=== PATIENT | female | born 1995 | race Caucasian/White ===

== ENCOUNTER 2018-05-04 10:03 | Outpatient (CLI) | payer BC ==
[~2018-05-04] VITALS: Ht 165.1 cm; Wt 79.1 kg
[2018-05-04 10:17] VITALS: BP 131/92; PULSE 85; TEMP 98.3
[2018-05-04] MEDS ORDERED: PRENATAL1 TA7 PO (10:22)
[2018-05-04] MEDS ORDERED: PROAIR HFA0.09 MG/AC IH (10:23)
[2018-05-04 10:30] VITALS: BP 131/92; PULSE 97
[2018-05-04 11:00] VITALS: BP 120/84; PULSE 74
[2018-05-04 11:36] VITALS: BP 130/96; PULSE 74
== END 2018-05-04 11:50 | disposition home or self-care (01) ==
LOC: LDRO 10:03
DX: O62.9 Abnormality of forces of labor, unspecified (principal); Z3A.40 40 weeks gestation of pregnancy

== ENCOUNTER 2018-05-10 11:01 | Inpatient (IN) | payer BC ==
[~2018-05-10] VITALS: Ht 165.1 cm; Wt 79.1 kg
[2018-05-10] VITALS (28 sets, daily range): BP systolic 108–161; BP diastolic 54–97; PULSE 73–117; TEMP 98–98.9
[~2018-05-10 11:01] MED LIST: PRENATAL1 TA7 PO; PROAIR HFA0.09 MG/AC IH
[2018-05-10 13:54] LABS: BASO % 0.3 % (0.0-2.0); EOS # 0.1 (0.0-0.7); EOS % 0.5 % (0-4.0); GRAN # 8.8 (1.4-6.5); GRAN % 79.5 % (42.2-75.2); HEMATOCRIT 39.9 % (37.0-47.0); HEMOGLOBIN 13.7 g/dl (12.5-16.0); LYMPH # 1.6 (1.2-3.4); MEAN CELL VOLUME 89 fl (80.0-100.0); MEAN CORPUSCULAR HEMOGLOBIN 30 pg (27.0-31.0); MEAN CORPUSCULAR HGB CONC 34 g/dl (33.0-37.0); MEAN PLATELET VOLUME 9.8 fl (7.4-10.4); MONO # 0.6 (0.1-0.6); MONO % 5.2 % (1.7-9.3); PLATELET COUNT 335 K/mm3 (130-400); REDCELL DISTRIBUTION WIDTH-CV 12.5 % (11.5-14.5)
[2018-05-11 09:00] VITALS: BP 124/71; PULSE 80; TEMP 98.2
[2018-05-11 19:25] VITALS: BP 119/93; PULSE 87; TEMP 98.3
[2018-05-12 08:26] VITALS: BP 118/85; PULSE 80; TEMP 98.1
[2018-05-12] MEDS ORDERED: IBU800 M1 PO (10:30)
[2018-05-12] MEDS ORDERED: PERCOCET 325 MG1 TA2 PO (10:30)
[2018-05-12 16:14] VITALS: BP 134/88; PULSE 90; TEMP 98.9
[2018-05-12 22:22] VITALS: BP 120/77; PULSE 84; TEMP 98.9
[2018-05-13 07:59] VITALS: BP 116/68; PULSE 105; TEMP 98.1
== END 2018-05-13 14:40 | disposition home or self-care (01) | DRG 766 ==
LOC: LDRO 11:01 → LDR 13:15 → OB 17:10
PROVIDERS: Student in an Organized Health Care Education/Training Program
PROC: 10D00Z1 Extraction of Products of Conception, Low, Open Approach (ICD-10-PCS; principal; 2018-05-10)
DX: O76 Abnormality in fetal heart rate and rhythm complicating labor and delivery (principal); O48.0 Post-term pregnancy; Z3A.41 41 weeks gestation of pregnancy; Z37.0 Single live birth; O99.344 Other mental disorders complicating childbirth; J45.909 Unspecified asthma, uncomplicated; F41.8 Other specified anxiety disorders; F90.9 Attention-deficit hyperactivity disorder, unspecified type
CPT/HCPCS: J0690; J1885; J2370; J2405; J2590; J2795; J3010; J7120

== ENCOUNTER → 2018-05-15 | Outpatient (CLI) | payer BC ==
[~2018-05-15] MED LIST changes: +IBU800 M1 PO; +PERCOCET 325 MG1 TA2 PO
== END ==
LOC: LAC 10:19
DX: Z39.1 Encounter for care and examination of lactating mother (principal); Z71.89 Other specified counseling

== ENCOUNTER 2020-01-12 15:52 | Emergency (ER) | payer BC ==
[~2020-01-12] VITALS: Ht 165.1 cm; Wt 68.2 kg
[2020-01-12 16:09] VITALS: TEMP 98.2
[2020-01-12 16:31] LABS: COLLECTION METHOD CLEAN CATCH
[2020-01-12 16:42] LABS: PH 7 (5-8); SQUAMOUS EPITHELIAL None Seen /hpf; URINE APPEARANCE Clear; URINE BACTERIA None Seen /hpf; URINE BILIRUBIN Negative (NEGATIVE); URINE BLOOD 1+ (NEGATIVE); URINE COLOR Colorless; URINE GLUCOSE Negative (NEGATIVE); URINE KETONE Negative (NEGATIVE); URINE LEUKOCYTE ESTERASE Negative (NEGATIVE); URINE NITRATE Negative (NEGATIVE); URINE PROTEIN(semi-quant) Negative (NEGATIVE); URINE RBC 0-2 /hpf; URINE UROBILINOGEN Negative (NEGATIVE)
[2020-01-12 16:52] LABS: TRICYCLIC ANTIDEPRESS URINE NEGATIVE
[2020-01-12 16:57] LABS: BASO # 0.1 (0.0-0.2); BASO % 0.8 % (0.0-2.0); EOS # 0.1 (0.0-0.7); EOS % 1.8 % (0-4.0); GRAN # 4.4 (1.4-6.5); GRAN % 59.2 % (42.2-75.2); HEMOGLOBIN 14.8 g/dl (12.5-16.0); LYMPH # 2.3 (1.2-3.4); LYMPH % 30.6 % (20.0-51.0); MEAN CELL VOLUME 99 fl (80.0-100.0); MEAN CORPUSCULAR HEMOGLOBIN 33 pg (27.0-31.0); MEAN CORPUSCULAR HGB CONC 34 g/dl (33.0-37.0); MEAN PLATELET VOLUME 8.5 fl (7.4-10.4); MONO # 0.5 (0.1-0.6); MONO % 7.3 % (1.7-9.3); PLATELET COUNT 321 K/mm3 (130-400); RED BLOOD COUNT 4.44 M/mm3 (4.10-5.30); REDCELL DISTRIBUTION WIDTH-CV 12.2 % (11.5-14.5)
[2020-01-12 17:09] LABS: ALANINE AMINOTRANSFERASE 86 U/L (4-34); ALKALINE PHOSPHATASE 62 U/L (50-136); ANION GAP 11 mmol/L (7-16); AST,SGOT 143 U/L (15-37); BILIRUBIN,TOTAL 0.5 mg/dL (0.0-1.0); BLOOD UREA NITROGEN 9 mg/dL (7-17); CALCIUM 9.4 mg/dL (8.4-10.2); CARBON DIOXIDE 29 mmol/L (22-30); CHLORIDE 104 mmol/L (98-107); GLUCOSE 110 mg/dL (74-106); POTASSIUM 3.5 mmol/L (3.4-5.0); SODIUM 144 mmol/L (137-145); TOTAL PROTEIN 8.6 gm/dL (6.4-8.2)
[2020-01-12 17:11] LABS: ACETAMINOPHEN < 10 ug/mL (10-30); SALICYLATE < 1.0 mg/dL
[2020-01-12 17:20] LABS: ALCOHOL(ethanol),MEDICAL 350 mg/dL
[2020-01-13 00:28] LABS: INR 0.9 (0.8-3.0); PROTHROMBIN TIME 10.4 SECONDS (9.7-12.8)
[2020-01-13 00:32] LABS: ALBUMIN 4.3 gm/dL (3.5-5.0); BILIRUBIN,TOTAL 0.5 mg/dL (0.0-1.0); CALCIUM 8.7 mg/dL (8.4-10.2); CREATININE, serum 0.48 (0.52-1.25); POTASSIUM 3.8 mmol/L (3.4-5.0); TOTAL PROTEIN 7.2 gm/dL (6.4-8.2)
[2020-01-13 09:20] VITALS: BP 140/96; PULSE 92
== END 2020-01-13 09:19 | disposition home or self-care (01) ==
LOC: COL.ER 15:52
PROVIDERS: Emergency Medicine; Nurse Practitioner
DX: T39.1X2A Poisoning by 4-Aminophenol derivatives, intentional self-harm, initial encounter (principal); R45.851 Suicidal ideations; F10.129 Alcohol abuse with intoxication, unspecified; Y90.8 Blood alcohol level of 240 mg/100 ml or more